=== PATIENT | male | born 1975 | race Caucasian/White ===

== ENCOUNTER 2018-12-29 14:43 | Inpatient (IN) | payer OTHER | END 2019-01-01 10:13 | disposition home or self-care (01) | LOC: YASAS 14:43 → Y6N 17:16 ==

== ENCOUNTER 2019-04-30 10:15 | Inpatient (IN) | payer SELFPAY ==
[2019-04-30 10:33] VITALS: BMI 32.5
--- NOTE | 2019-04-30 11:49 | HP ---
COWS - Scale Resting Pulse: 0= [place] 80 or Below Sweatin= No chills or Flushing Restless Observation: 1= Difficult to Sit Still Pupil Size: 0= Normal to Room Light Bone or Joint Aches: 2= Severe Diffuse Aches Runny Nose/ Eye Tearin= None GI Upset > 30mins: 1= Stomach Cramp Tremor Observation: 0= None Yawning Observation: 0= None Anxiety or Irritability: 2=Irritable/Anxious Goose Flesh Skin: 0=Smooth Skin COWS Score: 6 CIWA Score - Admission Criteria [facility]ASAS Guidelines: Admission for Medically Managed Detox: Requires at least one of the followin. CIWA greater than 12 2. Seizures within the past 24 hours 3. Delirium tremens within the past 24 hours 4. Hallucinations within the past 24 hours 5. Acute intervention needed for co occurring medical disorder 6. Acute intervention needed for co occurring psychiatric disorder 7. Severe withdrawal that cannot be handled at a lower level of care (continued vomiting, continued diarrhea, abnormal vital signs) requiring intravenous medication and/or fluids 8. Admission ROS [facility] - HPI Allergies/Adverse Reactions: Allergies Allergy/AdvReac Type Severity Reaction Status Date / Time No Known Allergies Allergy Verified 04/30/19 10:27 History of Present Illness: pt here requesting detox from heroin use , reports 7-10 bags/day via inhalation ,started use 11 mo ago , reports also illicit Methadone use as well , states he buys 120 mg methadone daily and uses 1/2 bottle/day , denies ivdu ,denies od . Latest use yesterday night , current symptoms as above, latest methadone use this morning 60 mg . 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 - Ebola screening Have you traveled outside of the country in the last 21 days: No Have you had contact with anyone from an Ebola affected area: No Do you have a fever: No - Review of Systems Constitutional: Loss of Appetite EENT: reports: No Symptoms Reported Respiratory: reports: No Symptoms reported Cardiac: reports: No Symptoms Reported GI: reports: See HPI : reports: No Symptoms Reported Musculoskeletal: reports: See HPI Integumentary: reports: No Symptoms Reported Neuro: reports: Headache Endocrine: reports: No Symptoms Reported Psychiatric: reports: Orientated x3, Anxious Patient History - Patient Medical History Hx Asthma: No Hx Chronic Obstructive Pulmonary Disease (COPD): No Hx Cardiac Disorders: No Hx Hypertension: No Hx Seizures: No Hx Diabetes: No Hx Gastrointestinal Disorders: No Hx Genitourinary Disorders: No Hx Sexually Transmitted Disorders: No Hx Renal Disease (ESRD): No Hx Depression: No Hx Suicide Attempt: No Hx Schizophrenia: No - Patient Surgical History Past Surgical History: No Hx Neurologic Surgery: No Hx Cataract Extraction: No Hx Cardiac Surgery: No Hx Lung Surgery: No Hx Breast Surgery: No Hx Breast Biopsy: No Hx Abdominal Surgery: No Hx Appendectomy: No Hx Cholecystectomy: No Hx Genitourinary Surgery: No Hx Section: No Hx Orthopedic Surgery: No Anesthesia Reaction: No - PPD History Date: 12/31/18 - Smoking Cessation Smoking history: Current some day smoker Have you smoked in the past 12 months: Yes Cigars Per Day: 1 (Every 2 weeks) Hx Chewing Tobacco Use: No Initiated information on smoking cessation: No - Substances abused Heroin Substance route: Inhalation Frequency: Daily Amount used: 7-10 bags Age of first use: 43 Date of last use: 04/29/19 Non-Rx Methadone Substance route: Oral Frequency: 1-2 times per week Amount used: varies Age of first use: 43 Date of last use: 04/30/19 Admission Physical Exam [facility] - Vital Signs Vital Signs: Vital Signs - 24 hr 04/30/19 10:27 Temperature 97.9 F Pulse Rate 52 L Respiratory 20 Rate Blood Pressure 182/97 H - Physical General Appearance: Yes: Mild Distress, Anxious, Other (guarded) HEENTM: Yes: EOMI, Hearing grossly Normal, Normocephalic, Normal Voice Respiratory: Yes: Chest Non-Tender, Lungs Clear, Normal Breath Sounds, No Respiratory Distress, No Accessory Muscle Use Neck: Yes: No masses,lesions,Nodules, Trachea in good position Cardiology: Yes: Regular Rhythm, Regular Rate, S1, S2 Abdominal: Yes: Non Tender, Soft Musculoskeletal: Yes: full range of Motion, Gait Steady Extremities: Yes: Normal Inspection, Normal Range of Motion, Non-Tender Neurological: Yes: Fully Oriented, Alert, Motor Strength 5/5, Normal Mood/Affect Integumentary: Yes: Warm - Diagnostic (1) Opioid dependence with intoxication Current Visit: Yes Status: Acute Qualifiers: Complication of substance-induced condition: uncomplicated Qualified Code(s ): F11.220 - Opioid dependence with intoxication, uncomplicated Breathalyzer - Breathalyzer Breathalyzer: 0 Urine Drug Screen - Test Device Lot number: [id number] Expiration date: 01/02/21 - Control Is test valid?: Yes - Results Drug screen NEGATIVE: No Urine drug screen results: MOP-Opiates, OXY-Oxycodone, MTD-Methadone Inpatient Rehab Admission - Rehab Decision to Admit Inpatient rehab admission?: No
[2019-04-30] MEDS ORDERED: MENTHOL/PHENOL 1 EACH UD MM PRN (12:02)
[2019-04-30] MEDS ORDERED: BISMUTH SUBSALICYLATE 524 MG/30 ML UD PO PRN (12:02)
[2019-04-30] MEDS ORDERED: MAGNESIUM HYDROX 2400MG/30ML ORAL SUSPENSION 30 ML CUP PO PRN (12:02)
[2019-04-30] MEDS ORDERED: ACETAMINOPHEN 325 MG TABLET (FP) PO PRN ×2 (12:02)
[2019-04-30] MEDS ORDERED: MAGNESIUM CITRATE 300 ML BOTTLE PO PRN (12:02)
[2019-04-30] MEDS ORDERED: MAG HYDROX/AL HYDROX/SIMETH 30 ML UNIT-DOSE CUP PO PRN (12:02)
[2019-04-30] MEDS ORDERED: IBUPROFEN 400 MG TABLET (FP) PO PRN (12:02)
[2019-04-30] MEDS ORDERED: cloNIDine HCL 0.1 MG TABLET PO PRN (12:03)
[2019-04-30] MEDS: hydrOXYzine PAMOATE 25 MG CAPSULE (FP) PO PRN ×2 (15:04→22:20)
[2019-04-30] MEDS: METHOCARBAMOL 500 MG TABLET PO PRN ×2 (15:04→22:20)
[2019-04-30] MEDS: clonazePAM 0.5 MG TABLET PO PRN (17:29)
[2019-04-30] MEDS: THIAMINE HCL 100 MG TABLET (FP) PO SCH (22:20)
[2019-04-30] MEDS: MELATONIN 5 MG TABLETS PO PRN (22:20)
[2019-04-30] MEDS ORDERED: METHADONE HCL 10 MG TABLET (FOR DETOX USE ONLY) PO ONE (23:00)
[2019-05-01] MEDS: clonazePAM 0.5 MG TABLET PO PRN ×3 (07:27→22:22)
[2019-05-01 09:40] LABS: HEMATOCRIT 45.1 % (35.4-49); HEMOGLOBIN 15.7 GM/dL (11.7-16.9); MCH 29.3 pg (25.7-33.7); MCHC 34.8 g/dl (32.0-35.9); MEAN CELL VOLUME 84.2 fl (80-96); MEAN PLT VOLUME 7.4 fl (7.5-11.1); PLATELET COUNT 144 K/MM3 (134-434); RBC 5.35 M/mm3 (4.00-5.60); RDW 13.5 % (11.9-15.9); WHITE BLOOD COUNT 5.1 K/mm3 (4.0-10.0)
[2019-05-01 09:55] LABS: ALBUMIN 3.9 g/dl (3.4-5.0); BILIRUBIN,TOTAL 0.7 mg/dL (0.2-1); BLOOD UREA NITROGEN 17.1 mg/dL (7-18); CREATININE 0.8 mg/dL (0.55-1.3); POTASSIUM 4.7 mmol/L (3.5-5.1); TOT PROT 6.7 g/dl (6.4-8.2)
[2019-05-01] MEDS ORDERED: METHADONE HCL 5 MG TABLET (FOR DETOX USE ONLY) PO ONE (10:00)
[2019-05-01] MEDS: PRENATAL VITAMINS W/ FOLIC ACID TABLET (FP) PO SCH (10:38)
[2019-05-01] MEDS: METHOCARBAMOL 500 MG TABLET PO PRN ×2 (10:42→19:27)
[2019-05-01] MEDS: hydrOXYzine PAMOATE 25 MG CAPSULE (FP) PO PRN ×2 (10:43→19:27)
--- NOTE | 2019-05-01 11:45 | PN ---
BHS COWS - Scale Resting Pulse: 0= [place] 80 or Below Sweatin= Chills/Flushing Restless Observation: 1= Difficult to Sit Still Pupil Size: 0= Normal to Room Light Bone or Joint Aches: 2= Severe Diffuse Aches Runny Nose/ Eye Tearin= Nasal Congestion GI Upset > 30mins: 1= Stomach Cramp Tremor Observation of Outstretched Hands: 1= Tremor [place], Not Seen Yawning Observation: 1= 1-2x During Session Anxiety or Irritability: 0= None Goose Flesh Skin: 0=Smooth Skin COWS Score: 8 BHS Progress Note (SOAP) Subjective: c/o back pain, chills, sweats, interrupted sleep. Objective: 05/01/19 11:39 Vital Signs Temperature 98.7 F 05/01/19 09:19 Pulse Rate 50 L 05/01/19 09:19 Respiratory Rate 18 05/01/19 09:19 Blood Pressure 142/74 05/01/19 09:19 O2 Sat by Pulse Oximetry (%) Laboratory Last Values WBC 5.1 K/mm3 (4.0-10.0) 05/01/19 07:30 RBC 5.35 M/mm3 (4.00-5.60) 05/01/19 07:30 Hgb 15.7 GM/dL (11.7-16.9) 05/01/19 07:30 Hct 45.1 % (35.4-49) 05/01/19 07:30 MCV 84.2 fl (80-96) 05/01/19 07:30 MCH 29.3 pg (25.7-33.7) 05/01/19 07:30 MCHC 34.8 g/dl (32.0-35.9) 05/01/19 07:30 RDW 13.5 % (11.9-15.9) 05/01/19 07:30 Plt Count 144 K/MM3 (134-434) 05/01/19 07:30 MPV 7.4 fl (7.5-11.1) L 05/01/19 07:30 Sodium 143 mmol/L (136-145) 05/01/19 07:30 Potassium 4.7 mmol/L (3.5-5.1) 05/01/19 07:30 Chloride 107 mmol/L (98-107) 05/01/19 07:30 Carbon Dioxide 30 mmol/L (21-32) 05/01/19 07:30 Anion Gap 6 MMOL/L (8-16) L 05/01/19 07:30 BUN 17.1 mg/dL (7-18) 05/01/19 07:30 Creatinine 0.8 mg/dL (0.55-1.3) 05/01/19 07:30 Est GFR (CKD-EPI)AfAm 125.92 05/01/19 07:30 Est GFR (CKD-EPI)NonAf 108.65 05/01/19 07:30 Random Glucose 91 mg/dL (74-106) 05/01/19 07:30 Calcium 9.0 mg/dL (8.5-10.1) 05/01/19 07:30 Total Bilirubin 0.7 mg/dL (0.2-1) 05/01/19 07:30 AST 10 U/L (15-37) L 05/01/19 07:30 ALT 27 U/L (13-61) 05/01/19 07:30 Alkaline Phosphatase 80 U/L (45-117) 05/01/19 07:30 Total Protein 6.7 g/dl (6.4-8.2) 05/01/19 07:30 Albumin 3.9 g/dl (3.4-5.0) 05/01/19 07:30 RPR Titer Nonreactive (NONREACTIVE) 05/01/19 07:30 Labs reviewed Assessment: 05/01/19 11:43 Patient AOx3 no acute distress no adventitious breath sounds EENT WNL full ROM no gait abnormality Plan: MAT options reviewed with patient, patient plans to attend rehab post detox and OTP increase PO fluids continue detox continue to monitor
[2019-05-01] MEDS: THIAMINE HCL 100 MG TABLET (FP) PO SCH (22:20)
[2019-05-01] MEDS: MELATONIN 5 MG TABLETS PO PRN (22:22)
[2019-05-02] MEDS: METHOCARBAMOL 500 MG TABLET PO PRN ×3 (06:35→19:50)
[2019-05-02] MEDS: clonazePAM 0.5 MG TABLET PO PRN ×3 (06:35→19:50)
[2019-05-02] MEDS: hydrOXYzine PAMOATE 25 MG CAPSULE (FP) PO PRN ×3 (06:36→19:50)
[2019-05-02] MEDS ORDERED: METHADONE HCL 10 MG TABLET (FOR DETOX USE ONLY) PO ONE (10:00)
[2019-05-02] MEDS: PRENATAL VITAMINS W/ FOLIC ACID TABLET (FP) PO SCH (10:08)
--- NOTE | 2019-05-02 10:35 | PN ---
S COWS - Scale Resting Pulse: 0= [place] 80 or Below Sweatin= Beads of Sweat on Face Restless Observation: 1= Difficult to Sit Still Pupil Size: 0= Normal to Room Light Bone or Joint Aches: 2= Severe Diffuse Aches Runny Nose/ Eye Tearin= None GI Upset > 30mins: 0= None Tremor Observation of Outstretched Hands: 2= Slight Tremor Visible Yawning Observation: 1= 1-2x During Session Anxiety or Irritability: 2=Irritable/Anxious Goose Flesh Skin: 0=Smooth Skin COWS Score: 11 S Progress Note (SOAP) Subjective: c/o sweats, anxiety, irritability, muscle aches. Objective: 05/02/19 10:34 Vital Signs 05/02/19 05/02/19 05/02/19 03:30 07:02 09:40 Temperature 97.3 F L 97.7 F Pulse Rate 45 L 55 L Respiratory 18 18 18 Rate Blood Pressure 144/85 137/91 Lab Results WBC 5.1 K/mm3 (4.0-10.0) 05/01/19 07:30 RBC 5.35 M/mm3 (4.00-5.60) 05/01/19 07:30 Hgb 15.7 GM/dL (11.7-16.9) 05/01/19 07:30 Hct 45.1 % (35.4-49) 05/01/19 07:30 MCV 84.2 fl (80-96) 05/01/19 07:30 MCHC 34.8 g/dl (32.0-35.9) 05/01/19 07:30 RDW 13.5 % (11.9-15.9) 05/01/19 07:30 Plt Count 144 K/MM3 (134-434) 05/01/19 07:30 Sodium 143 mmol/L (136-145) 05/01/19 07:30 Potassium 4.7 mmol/L (3.5-5.1) 05/01/19 07:30 Chloride 107 mmol/L (98-107) 05/01/19 07:30 Carbon Dioxide 30 mmol/L (21-32) 05/01/19 07:30 Anion Gap 6 MMOL/L (8-16) L 05/01/19 07:30 BUN 17.1 mg/dL (7-18) 05/01/19 07:30 Creatinine 0.8 mg/dL (0.55-1.3) 05/01/19 07:30 Random Glucose 91 mg/dL (74-106) 05/01/19 07:30 Calcium 9.0 mg/dL (8.5-10.1) 05/01/19 07:30 Labs noted. Assessment: 05/02/19 10:35 AOX3, in no acute respiratory distress. Full ROM, ambulating in the unit. Withdrawal symptoms. Plan: continue detox.
[2019-05-02] MEDS: THIAMINE HCL 100 MG TABLET (FP) PO SCH (21:35)
[2019-05-02] MEDS: MELATONIN 5 MG TABLETS PO PRN (21:35)
[2019-05-03] MEDS: clonazePAM 0.5 MG TABLET PO PRN ×2 (01:54→07:55)
[2019-05-03] MEDS: METHOCARBAMOL 500 MG TABLET PO PRN ×2 (01:54→07:55)
[2019-05-03] MEDS: hydrOXYzine PAMOATE 25 MG CAPSULE (FP) PO PRN ×2 (01:54→07:55)
[2019-05-03] MEDS ORDERED: METHADONE HCL 5 MG TABLET (FOR DETOX USE ONLY) PO ONE (06:00)
[2019-05-03 10:01] VITALS: BP 127/85; PULSE 60; TEMP 97.5
--- NOTE | 2019-05-03 12:55 | DS ---
[facility] Detox Discharge Summary Admission Date: 04/30/19 Discharge Date: 05/03/19 - History Present History: Opioid Dependence Additional Comments: Patient completed detox successfully and discharged safety. Patient wants to be discharged today. Patient instructed to follow up with PCP within 1 week for all medical problems. Patient denies any complaints. Pertinent Past History: Opioid dependence Obesity HTN - Physical Exam Results Vital Signs: Vital Signs Temperature 97.5 F L 05/03/19 09:59 Pulse Rate 60 05/03/19 09:59 Respiratory Rate 18 05/03/19 09:59 Blood Pressure 127/85 05/03/19 09:59 O2 Sat by Pulse Oximetry (%) Pertinent Admission Physical Exam Findings: Withdrawal symptoms Laboratory Tests 05/01/19 05/01/19 05/01/19 07:30 07:30 07:30 WBC 5.1 RBC 5.35 Hgb 15.7 Hct 45.1 MCV 84.2 MCH 29.3 MCHC 34.8 RDW 13.5 Plt Count 144 MPV 7.4 L Sodium 143 Potassium 4.7 Chloride 107 Carbon Dioxide 30 Anion Gap 6 L BUN 17.1 Creatinine 0.8 Est GFR (CKD-EPI)AfAm 125.92 Est GFR (CKD-EPI)NonAf 108.65 Random Glucose 91 Calcium 9.0 Total Bilirubin 0.7 AST 10 L ALT 27 Alkaline Phosphatase 80 Total Protein 6.7 Albumin 3.9 RPR Titer Nonreactive Labs reviewed - Treatment Hospital Course: Detox Protocol Followed, Detoxed Safely, Responded well, Discharged Condition Good - Medication Discharge Medications: Ambulatory Orders Amlodipine Besylate 10 mg PO DAILY 12/29/18 - Diagnosis (1) Essential (primary) hypertension Current Visit: Yes Status: Chronic (2) Opioid dependence with withdrawal Current Visit: Yes Status: Chronic (3) Obesity Current Visit: Yes Status: Chronic - AMA Did Patient Leave Against Medical Advice: No (Instructed to follow up with PCP in 1 week)
== END 2019-05-03 10:18 | disposition home or self-care (01) | DRG 773 ==
LOC: YASAS 10:15 → Y6N 13:03
PROVIDERS: ADMIT Surgery; ATTEND Surgery
PROC: HZ2ZZZZ Detoxification Services for Substance Abuse Treatment (ICD-10-PCS; principal; 2019-04-30)
DX: F11.23 Opioid dependence with withdrawal (principal); I10 Essential (primary) hypertension; E66.9 Obesity, unspecified; Z68.32 Body mass index [BMI] 32.0-32.9, adult
CPT/HCPCS: 36415; 80053; 85027; 86593; J0735

== ENCOUNTER 2020-08-12 18:19 | Inpatient (IN) | payer OTHER ==
[2020-08-12] MEDS ORDERED: MAGNESIUM HYDROX 2400MG/30ML ORAL SUSPENSION 30 ML CUP PO PRN (20:58)
[2020-08-12] MEDS ORDERED: MAGNESIUM CITRATE 300 ML BOTTLE PO PRN (20:58)
[2020-08-12] MEDS ORDERED: guaiFENesin 200 MG/10 ML 10 ML UNIT-DOSE CUPS PO PRN (20:58)
[2020-08-12] MEDS ORDERED: MAG HYDROX/AL HYDROX/SIMETH 30 ML UNIT-DOSE CUP PO PRN (20:58)
[2020-08-12] MEDS ORDERED: ACETAMINOPHEN 325 MG TABLET (FP) PO PRN (20:58)
[2020-08-12] MEDS ORDERED: IBUPROFEN 400 MG TABLET (FP) PO PRN (20:58)
[2020-08-12] MEDS ORDERED: NICOTINE POLACRILEX 2 MG GUM BC PRN (20:58)
[2020-08-12] MEDS ORDERED: P-EPHED 60MG/TRIPROLIDI 2.5MG TABLET PO PRN (20:58)
[2020-08-12] MEDS ORDERED: LOPERAMIDE HCL 2 MG CAPSULE PO PRN (20:58)
[2020-08-12] MEDS ORDERED: cloNIDine HCL 0.1 MG TABLET PO PRN (21:00)
[2020-08-12 22:18] VITALS: BMI 36.5
[2020-08-12] MEDS ORDERED: TUBERCULIN PPD 5 TU/0.1ML VIAL ID ONE (23:30)
[2020-08-12] MEDS: THIAMINE HCL 100 MG TABLET (FP) PO SCH (23:30)
[2020-08-12] MEDS: MELATONIN 5 MG TABLETS PO SCH (23:30)
[2020-08-12] MEDS: HYDROCORTISONE 1% TOPICAL OINT 30 GM TUBE TP SCH (23:32)
[2020-08-13] MEDS ORDERED: METHADONE HCL 10 MG TABLET PO SCH (07:45)
[2020-08-13] MEDS ORDERED: METHADONE HCL 10 MG TABLET ONE (08:24)
[2020-08-13] MEDS ORDERED: METHADONE HCL 40 MG DISPERSABLE TABLET ONE (08:24)
[2020-08-13] MEDS: METHADONE 120 MG, METHADONE 20 MG PO SCH (08:46)
[2020-08-13] MEDS: PRENATAL VITAMINS W/ FOLIC ACID TABLET (FP) PO SCH (10:28)
[2020-08-13] MEDS: amLODIPine BESYLATE 10 MG TABLET (FP) PO SCH (10:28)
[2020-08-13] MEDS: HYDROCORTISONE 1% TOPICAL OINT 30 GM TUBE TP SCH ×2 (10:29→21:16)
[2020-08-13] MEDS: NICOTINE 14 MG/24 HOURS TOPICAL PATCH TD SCH (10:29)
[2020-08-13 11:28] LABS: HEMATOCRIT 41.9 % (35.4-49); HEMOGLOBIN 14.2 GM/dL (11.7-16.9); MCH 28.7 pg (25.7-33.7); MEAN CELL VOLUME 84.4 fl (80-96); MEAN PLT VOLUME 8.3 fl (7.5-11.1); PLATELET COUNT 123 K/MM3 (134-434); POTASSIUM 3.8 mmol/L (3.5-5.1); RBC 4.96 M/mm3 (4.00-5.60); RDW 14.6 % (11.9-15.9); WHITE BLOOD COUNT 3.8 K/mm3 (4.0-10.0)
[2020-08-13 11:30] LABS: ALBUMIN 3.7 g/dl (3.4-5.0); BLOOD UREA NITROGEN 24.7 mg/dL (7-18); CALCIUM 8.7 mg/dL (8.5-10.1)
[2020-08-13 11:35] LABS: BILIRUBIN,TOTAL 0.6 mg/dL (0.2-1); TOT PROT 6.6 g/dl (6.4-8.2)
[2020-08-13 12:06] LABS: SICKLE CELL SCREEN NEGATIVE (NEGATIVE)
[2020-08-13] MEDS: hydrOXYzine PAMOATE 25 MG CAPSULE (FP) PO PRN (16:40)
[2020-08-13] MEDS: MELATONIN 5 MG TABLETS PO SCH (21:15)
[2020-08-13] MEDS: QUEtiapine FUMARATE 100 MG TABLET (FP) PO SCH (21:15)
[2020-08-13] MEDS: MIRTAZAPINE 15 MG TABLET (FP) PO SCH (21:15)
[2020-08-13] MEDS: THIAMINE HCL 100 MG TABLET (FP) PO SCH (21:15)
[2020-08-13] MEDS ORDERED: QUEtiapine FUMARATE 200 MG TABLET PO SCH (22:00)
[2020-08-14] MEDS ORDERED: METHADONE HCL 10 MG TABLET ONE (03:24)
[2020-08-14] MEDS ORDERED: METHADONE HCL 40 MG DISPERSABLE TABLET ONE (03:24)
[2020-08-14] MEDS: METHADONE 120 MG, METHADONE 20 MG PO SCH (06:30)
[2020-08-14] MEDS: hydrOXYzine PAMOATE 25 MG CAPSULE (FP) PO PRN ×3 (06:31→21:21)
[2020-08-14] MEDS ORDERED: PT OWN MED DRAWER 7, Y5N ONE (08:40)
[2020-08-14] MEDS: HYDROCORTISONE 1% TOPICAL OINT 30 GM TUBE TP SCH ×2 (09:35→21:22)
[2020-08-14] MEDS: NICOTINE 14 MG/24 HOURS TOPICAL PATCH TD SCH (09:35)
[2020-08-14] MEDS: PRENATAL VITAMINS W/ FOLIC ACID TABLET (FP) PO SCH (09:35)
[2020-08-14] MEDS: amLODIPine BESYLATE 10 MG TABLET (FP) PO SCH (09:35)
[2020-08-14 10:45] LABS: PH,URINE 5.5 (5.0-8.0); URINE APPEARANCE CLEAR; URINE BILIRUBIN NEGATIVE (NEGATIVE); URINE COLOR YELLOW; URINE GLUCOSE (UA) NEGATIVE (NEGATIVE); URINE KETONE NEGATIVE (NEGATIVE); URINE LEUK ESTERASE NEGATIVE (NEGATIVE); URINE NITRITE NEGATIVE (NEGATIVE); URINE PROTEIN NEGATIVE (NEGATIVE); URINE UROBILINOGEN 0.2 mg/dL (0.2-1.0)
[2020-08-14] MEDS: QUEtiapine FUMARATE 100 MG TABLET (FP) PO SCH (21:21)
[2020-08-14] MEDS: MIRTAZAPINE 15 MG TABLET (FP) PO SCH (21:21)
[2020-08-14] MEDS: THIAMINE HCL 100 MG TABLET (FP) PO SCH (21:21)
[2020-08-14] MEDS: MELATONIN 5 MG TABLETS PO SCH (21:21)
[2020-08-15] MEDS ORDERED: METHADONE HCL 40 MG DISPERSABLE TABLET ONE (04:31)
[2020-08-15] MEDS ORDERED: METHADONE HCL 10 MG TABLET ONE (04:31)
[2020-08-15] MEDS: METHADONE 120 MG, METHADONE 20 MG PO SCH (06:10)
[2020-08-15] MEDS: hydrOXYzine PAMOATE 25 MG CAPSULE (FP) PO PRN ×3 (06:10→21:08)
[2020-08-15] MEDS: HYDROCORTISONE 1% TOPICAL OINT 30 GM TUBE TP SCH ×2 (09:48→21:10)
[2020-08-15] MEDS: PRENATAL VITAMINS W/ FOLIC ACID TABLET (FP) PO SCH (09:48)
[2020-08-15] MEDS: amLODIPine BESYLATE 10 MG TABLET (FP) PO SCH (09:48)
[2020-08-15] MEDS: NICOTINE 14 MG/24 HOURS TOPICAL PATCH TD SCH (09:48)
[2020-08-15] MEDS: CYCLOBENZAPRINE HCL 10 MG TABLET (FP) PO PRN ×2 (09:49→21:08)
[2020-08-15] MEDS: QUEtiapine FUMARATE 100 MG TABLET (FP) PO SCH (21:07)
[2020-08-15] MEDS: MIRTAZAPINE 15 MG TABLET (FP) PO SCH (21:07)
[2020-08-15] MEDS: GABAPENTIN 300 MG CAPSULE PO SCH (21:08)
[2020-08-15] MEDS: MELATONIN 5 MG TABLETS PO SCH (21:09)
[2020-08-15] MEDS: THIAMINE HCL 100 MG TABLET (FP) PO SCH (21:09)
[2020-08-16] MEDS ORDERED: PT OWN MED DRAWER 7, Y5N ONE (03:49)
[2020-08-16] MEDS ORDERED: METHADONE HCL 10 MG TABLET ONE (04:20)
[2020-08-16] MEDS ORDERED: METHADONE HCL 40 MG DISPERSABLE TABLET ONE (04:20)
[2020-08-16] MEDS: GABAPENTIN 300 MG CAPSULE PO SCH ×3 (06:19→21:45)
[2020-08-16] MEDS: hydrOXYzine PAMOATE 25 MG CAPSULE (FP) PO PRN ×2 (06:19→13:04)
[2020-08-16] MEDS: METHADONE 120 MG, METHADONE 20 MG PO SCH (06:20)
[2020-08-16] MEDS: CYCLOBENZAPRINE HCL 10 MG TABLET (FP) PO PRN ×2 (06:20→21:46)
[2020-08-16] MEDS: NICOTINE 14 MG/24 HOURS TOPICAL PATCH TD SCH (09:43)
[2020-08-16] MEDS: amLODIPine BESYLATE 10 MG TABLET (FP) PO SCH (09:44)
[2020-08-16] MEDS: HYDROCORTISONE 1% TOPICAL OINT 30 GM TUBE TP SCH ×2 (09:44→21:47)
[2020-08-16] MEDS: PRENATAL VITAMINS W/ FOLIC ACID TABLET (FP) PO SCH (09:44)
[2020-08-16] MEDS: QUEtiapine FUMARATE 100 MG TABLET (FP) PO SCH (21:45)
[2020-08-16] MEDS: MIRTAZAPINE 15 MG TABLET (FP) PO SCH (21:45)
[2020-08-16] MEDS: THIAMINE HCL 100 MG TABLET (FP) PO SCH (21:45)
[2020-08-16] MEDS: MELATONIN 5 MG TABLETS PO SCH (21:45)
[2020-08-16] MEDS: hydrOXYzine PAMOATE 50 MG CAPSULE (FP) PO PRN (21:46)
[2020-08-17] MEDS ORDERED: METHADONE HCL 10 MG TABLET ONE (04:12)
[2020-08-17] MEDS ORDERED: METHADONE HCL 40 MG DISPERSABLE TABLET ONE (04:12)
[2020-08-17] MEDS: GABAPENTIN 300 MG CAPSULE PO SCH ×3 (06:00→21:05)
[2020-08-17] MEDS: CYCLOBENZAPRINE HCL 10 MG TABLET (FP) PO PRN ×3 (06:01→21:05)
[2020-08-17] MEDS: METHADONE 120 MG, METHADONE 20 MG PO SCH (06:01)
[2020-08-17] MEDS: hydrOXYzine PAMOATE 50 MG CAPSULE (FP) PO PRN ×4 (06:01→21:05)
[2020-08-17] MEDS ORDERED: DOCUSATE SODIUM 100 MG CAPSULE (FP) PO ONE (09:05)
[2020-08-17] MEDS: amLODIPine BESYLATE 10 MG TABLET (FP) PO SCH (09:47)
[2020-08-17] MEDS: PRENATAL VITAMINS W/ FOLIC ACID TABLET (FP) PO SCH (09:47)
[2020-08-17] MEDS: NICOTINE 14 MG/24 HOURS TOPICAL PATCH TD SCH (09:48)
[2020-08-17] MEDS: HYDROCORTISONE 1% TOPICAL OINT 30 GM TUBE TP SCH ×2 (09:50→21:06)
[2020-08-17] MEDS: DOCUSATE SODIUM 100 MG CAPSULE (FP) PO SCH ×2 (14:42→21:05)
[2020-08-17] MEDS: MELATONIN 5 MG TABLETS PO SCH (21:05)
[2020-08-17] MEDS: MIRTAZAPINE 15 MG TABLET (FP) PO SCH (21:05)
[2020-08-17] MEDS: QUEtiapine FUMARATE 100 MG TABLET (FP) PO SCH (21:05)
[2020-08-17] MEDS: THIAMINE HCL 100 MG TABLET (FP) PO SCH (21:05)
[2020-08-18] MEDS ORDERED: METHADONE HCL 40 MG DISPERSABLE TABLET ONE (03:21)
[2020-08-18] MEDS ORDERED: METHADONE HCL 10 MG TABLET ONE (03:22)
[2020-08-18] MEDS: METHADONE 120 MG, METHADONE 20 MG PO SCH (05:52)
[2020-08-18] MEDS: GABAPENTIN 300 MG CAPSULE PO SCH ×3 (05:53→21:37)
[2020-08-18] MEDS: hydrOXYzine PAMOATE 50 MG CAPSULE (FP) PO PRN ×4 (05:53→21:37)
[2020-08-18] MEDS: DOCUSATE SODIUM 100 MG CAPSULE (FP) PO SCH ×3 (05:53→21:37)
[2020-08-18] MEDS: CYCLOBENZAPRINE HCL 10 MG TABLET (FP) PO PRN ×3 (05:53→21:37)
[2020-08-18] MEDS: amLODIPine BESYLATE 10 MG TABLET (FP) PO SCH (10:02)
[2020-08-18] MEDS: PRENATAL VITAMINS W/ FOLIC ACID TABLET (FP) PO SCH (10:03)
[2020-08-18] MEDS: NICOTINE 14 MG/24 HOURS TOPICAL PATCH TD SCH (10:03)
[2020-08-18] MEDS: HYDROCORTISONE 1% TOPICAL OINT 30 GM TUBE TP SCH ×2 (10:47→21:38)
[2020-08-18] MEDS: MELATONIN 5 MG TABLETS PO SCH (21:37)
[2020-08-18] MEDS: MIRTAZAPINE 15 MG TABLET (FP) PO SCH (21:37)
[2020-08-18] MEDS: QUEtiapine FUMARATE 100 MG TABLET (FP) PO SCH (21:37)
[2020-08-18] MEDS: THIAMINE HCL 100 MG TABLET (FP) PO SCH (21:37)
[2020-08-19] MEDS ORDERED: METHADONE HCL 40 MG DISPERSABLE TABLET ONE (05:45)
[2020-08-19] MEDS ORDERED: METHADONE HCL 10 MG TABLET ONE (05:45)
[2020-08-19] MEDS: METHADONE 120 MG, METHADONE 20 MG PO SCH (06:05)
[2020-08-19] MEDS: GABAPENTIN 300 MG CAPSULE PO SCH ×3 (06:05→21:09)
[2020-08-19] MEDS: DOCUSATE SODIUM 100 MG CAPSULE (FP) PO SCH ×3 (06:05→21:09)
[2020-08-19] MEDS: hydrOXYzine PAMOATE 50 MG CAPSULE (FP) PO PRN ×4 (06:05→21:09)
[2020-08-19] MEDS: CYCLOBENZAPRINE HCL 10 MG TABLET (FP) PO PRN ×3 (06:05→21:09)
[2020-08-19] MEDS: amLODIPine BESYLATE 10 MG TABLET (FP) PO SCH (10:03)
[2020-08-19] MEDS: PRENATAL VITAMINS W/ FOLIC ACID TABLET (FP) PO SCH (10:03)
[2020-08-19] MEDS: NICOTINE 14 MG/24 HOURS TOPICAL PATCH TD SCH (10:03)
[2020-08-19] MEDS: HYDROCORTISONE 1% TOPICAL OINT 30 GM TUBE TP SCH (10:04)
[2020-08-19] MEDS: MIRTAZAPINE 15 MG TABLET (FP) PO SCH (21:09)
[2020-08-19] MEDS: MELATONIN 5 MG TABLETS PO SCH (21:09)
[2020-08-19] MEDS: THIAMINE HCL 100 MG TABLET (FP) PO SCH (21:09)
[2020-08-19] MEDS: QUEtiapine FUMARATE 100 MG TABLET (FP) PO SCH (21:09)
[2020-08-20] MEDS ORDERED: METHADONE HCL 10 MG TABLET ONE (03:27)
[2020-08-20] MEDS ORDERED: METHADONE HCL 40 MG DISPERSABLE TABLET ONE (03:27)
[2020-08-20] MEDS: METHADONE 120 MG, METHADONE 20 MG PO SCH (06:08)
[2020-08-20] MEDS: DOCUSATE SODIUM 100 MG CAPSULE (FP) PO SCH ×3 (06:08→21:17)
[2020-08-20] MEDS: GABAPENTIN 300 MG CAPSULE PO SCH ×3 (06:08→21:17)
[2020-08-20] MEDS: CYCLOBENZAPRINE HCL 10 MG TABLET (FP) PO PRN ×3 (06:08→21:17)
[2020-08-20] MEDS: hydrOXYzine PAMOATE 50 MG CAPSULE (FP) PO PRN ×4 (06:08→21:16)
[2020-08-20] MEDS: PRENATAL VITAMINS W/ FOLIC ACID TABLET (FP) PO SCH (10:17)
[2020-08-20] MEDS: amLODIPine BESYLATE 10 MG TABLET (FP) PO SCH (10:17)
[2020-08-20] MEDS: NICOTINE 14 MG/24 HOURS TOPICAL PATCH TD SCH (10:18)
[2020-08-20] MEDS: THIAMINE HCL 100 MG TABLET (FP) PO SCH (21:16)
[2020-08-20] MEDS: MIRTAZAPINE 15 MG TABLET (FP) PO SCH (21:17)
[2020-08-20] MEDS: QUEtiapine FUMARATE 100 MG TABLET (FP) PO SCH (21:19)
[2020-08-20] MEDS: MELATONIN 5 MG TABLETS PO SCH (21:44)
[2020-08-21] MEDS ORDERED: METHADONE HCL 40 MG DISPERSABLE TABLET ONE (03:49)
[2020-08-21] MEDS ORDERED: METHADONE HCL 10 MG TABLET ONE (03:50)
[2020-08-21] MEDS: GABAPENTIN 300 MG CAPSULE PO SCH ×3 (06:03→22:03)
[2020-08-21] MEDS: CYCLOBENZAPRINE HCL 10 MG TABLET (FP) PO PRN ×3 (06:03→22:06)
[2020-08-21] MEDS: DOCUSATE SODIUM 100 MG CAPSULE (FP) PO SCH ×3 (06:03→22:03)
[2020-08-21] MEDS: METHADONE 120 MG, METHADONE 20 MG PO SCH (06:03)
[2020-08-21] MEDS: hydrOXYzine PAMOATE 50 MG CAPSULE (FP) PO PRN ×4 (06:05→22:04)
[2020-08-21] MEDS: amLODIPine BESYLATE 10 MG TABLET (FP) PO SCH (09:46)
[2020-08-21] MEDS: PRENATAL VITAMINS W/ FOLIC ACID TABLET (FP) PO SCH (09:46)
[2020-08-21] MEDS: NICOTINE 14 MG/24 HOURS TOPICAL PATCH TD SCH (09:48)
[2020-08-21] MEDS: MIRTAZAPINE 15 MG TABLET (FP) PO SCH (22:03)
[2020-08-21] MEDS: MELATONIN 5 MG TABLETS PO SCH (22:04)
[2020-08-21] MEDS: THIAMINE HCL 100 MG TABLET (FP) PO SCH (22:04)
[2020-08-21] MEDS: QUEtiapine FUMARATE 100 MG TABLET (FP) PO SCH (22:04)
[2020-08-22] MEDS ORDERED: METHADONE HCL 40 MG DISPERSABLE TABLET ONE (03:15)
[2020-08-22] MEDS ORDERED: METHADONE HCL 10 MG TABLET ONE (03:15)
[2020-08-22] MEDS: METHADONE 120 MG, METHADONE 20 MG PO SCH (06:01)
[2020-08-22] MEDS: DOCUSATE SODIUM 100 MG CAPSULE (FP) PO SCH ×3 (06:02→21:00)
[2020-08-22] MEDS: CYCLOBENZAPRINE HCL 10 MG TABLET (FP) PO PRN ×3 (06:02→21:01)
[2020-08-22] MEDS: GABAPENTIN 300 MG CAPSULE PO SCH ×3 (06:02→21:00)
[2020-08-22] MEDS: hydrOXYzine PAMOATE 50 MG CAPSULE (FP) PO PRN ×4 (06:02→21:01)
[2020-08-22] MEDS ORDERED: HYDROCORTISONE 1% TOPICAL CREAM 30 GM TUBE TP PRN (09:51)
[2020-08-22] MEDS: NICOTINE 14 MG/24 HOURS TOPICAL PATCH TD SCH (09:56)
[2020-08-22] MEDS: amLODIPine BESYLATE 10 MG TABLET (FP) PO SCH (09:56)
[2020-08-22] MEDS: PRENATAL VITAMINS W/ FOLIC ACID TABLET (FP) PO SCH (09:56)
[2020-08-22] MEDS: MIRTAZAPINE 15 MG TABLET (FP) PO SCH (21:00)
[2020-08-22] MEDS: MELATONIN 5 MG TABLETS PO SCH (21:00)
[2020-08-22] MEDS: QUEtiapine FUMARATE 100 MG TABLET (FP) PO SCH (21:00)
[2020-08-22] MEDS: THIAMINE HCL 100 MG TABLET (FP) PO SCH (21:00)
[2020-08-23] MEDS ORDERED: METHADONE HCL 10 MG TABLET ONE (03:42)
[2020-08-23] MEDS ORDERED: METHADONE HCL 40 MG DISPERSABLE TABLET ONE (03:42)
[2020-08-23] MEDS: METHADONE 120 MG, METHADONE 20 MG PO SCH (06:20)
[2020-08-23] MEDS: GABAPENTIN 300 MG CAPSULE PO SCH ×3 (06:21→21:32)
[2020-08-23] MEDS: CYCLOBENZAPRINE HCL 10 MG TABLET (FP) PO PRN ×3 (06:21→21:32)
[2020-08-23] MEDS: DOCUSATE SODIUM 100 MG CAPSULE (FP) PO SCH ×3 (06:21→21:32)
[2020-08-23] MEDS: hydrOXYzine PAMOATE 50 MG CAPSULE (FP) PO PRN ×4 (06:21→21:32)
[2020-08-23] MEDS: amLODIPine BESYLATE 10 MG TABLET (FP) PO SCH (10:22)
[2020-08-23] MEDS: PRENATAL VITAMINS W/ FOLIC ACID TABLET (FP) PO SCH (10:22)
[2020-08-23] MEDS: NICOTINE 14 MG/24 HOURS TOPICAL PATCH TD SCH (10:22)
[2020-08-23] MEDS: THIAMINE HCL 100 MG TABLET (FP) PO SCH (21:32)
[2020-08-23] MEDS: MELATONIN 5 MG TABLETS PO SCH (21:32)
[2020-08-23] MEDS: MIRTAZAPINE 15 MG TABLET (FP) PO SCH (21:32)
[2020-08-23] MEDS: QUEtiapine FUMARATE 100 MG TABLET (FP) PO SCH (21:32)
[2020-08-24] MEDS ORDERED: METHADONE HCL 40 MG DISPERSABLE TABLET ONE (03:40)
[2020-08-24] MEDS ORDERED: METHADONE HCL 10 MG TABLET ONE (03:40)
[2020-08-24] MEDS: CYCLOBENZAPRINE HCL 10 MG TABLET (FP) PO PRN ×3 (05:53→21:11)
[2020-08-24] MEDS: GABAPENTIN 300 MG CAPSULE PO SCH ×3 (05:53→21:10)
[2020-08-24] MEDS: DOCUSATE SODIUM 100 MG CAPSULE (FP) PO SCH ×3 (05:53→21:11)
[2020-08-24] MEDS: METHADONE 120 MG, METHADONE 20 MG PO SCH (05:53)
[2020-08-24] MEDS: hydrOXYzine PAMOATE 50 MG CAPSULE (FP) PO PRN ×4 (05:53→21:11)
[2020-08-24] MEDS: PRENATAL VITAMINS W/ FOLIC ACID TABLET (FP) PO SCH (09:57)
[2020-08-24] MEDS: amLODIPine BESYLATE 10 MG TABLET (FP) PO SCH (09:57)
[2020-08-24] MEDS: NICOTINE 14 MG/24 HOURS TOPICAL PATCH TD SCH (09:58)
[2020-08-24] MEDS: MIRTAZAPINE 15 MG TABLET (FP) PO SCH (21:11)
[2020-08-24] MEDS: QUEtiapine FUMARATE 100 MG TABLET (FP) PO SCH (21:11)
[2020-08-24] MEDS: THIAMINE HCL 100 MG TABLET (FP) PO SCH (21:12)
[2020-08-24] MEDS: MELATONIN 5 MG TABLETS PO SCH (21:12)
[2020-08-25] MEDS ORDERED: METHADONE HCL 40 MG DISPERSABLE TABLET ONE (03:47)
[2020-08-25] MEDS ORDERED: METHADONE HCL 10 MG TABLET ONE (03:47)
[2020-08-25] MEDS: CYCLOBENZAPRINE HCL 10 MG TABLET (FP) PO PRN ×3 (05:58→21:52)
[2020-08-25] MEDS: METHADONE 120 MG, METHADONE 20 MG PO SCH (05:58)
[2020-08-25] MEDS: GABAPENTIN 300 MG CAPSULE PO SCH ×3 (05:58→21:53)
[2020-08-25] MEDS: DOCUSATE SODIUM 100 MG CAPSULE (FP) PO SCH ×3 (05:58→21:51)
[2020-08-25] MEDS: hydrOXYzine PAMOATE 50 MG CAPSULE (FP) PO PRN ×4 (05:58→21:52)
[2020-08-25] MEDS: amLODIPine BESYLATE 10 MG TABLET (FP) PO SCH (09:57)
[2020-08-25] MEDS: PRENATAL VITAMINS W/ FOLIC ACID TABLET (FP) PO SCH (09:57)
[2020-08-25] MEDS: NICOTINE 14 MG/24 HOURS TOPICAL PATCH TD SCH (09:58)
[2020-08-25] MEDS: MIRTAZAPINE 15 MG TABLET (FP) PO SCH (21:52)
[2020-08-25] MEDS: THIAMINE HCL 100 MG TABLET (FP) PO SCH (21:52)
[2020-08-25] MEDS: QUEtiapine FUMARATE 100 MG TABLET (FP) PO SCH (21:52)
[2020-08-25] MEDS: MELATONIN 5 MG TABLETS PO SCH (21:53)
[2020-08-26] MEDS ORDERED: METHADONE HCL 40 MG DISPERSABLE TABLET ONE (03:14)
[2020-08-26] MEDS ORDERED: METHADONE HCL 10 MG TABLET ONE (03:14)
[2020-08-26] MEDS: GABAPENTIN 300 MG CAPSULE PO SCH ×3 (05:51→21:02)
[2020-08-26] MEDS: METHADONE 120 MG, METHADONE 20 MG PO SCH (05:51)
[2020-08-26] MEDS: hydrOXYzine PAMOATE 50 MG CAPSULE (FP) PO PRN ×4 (05:51→21:03)
[2020-08-26] MEDS: DOCUSATE SODIUM 100 MG CAPSULE (FP) PO SCH ×3 (05:51→21:02)
[2020-08-26] MEDS: CYCLOBENZAPRINE HCL 10 MG TABLET (FP) PO PRN ×3 (05:51→21:03)
[2020-08-26] MEDS: amLODIPine BESYLATE 10 MG TABLET (FP) PO SCH (09:58)
[2020-08-26] MEDS: NICOTINE 14 MG/24 HOURS TOPICAL PATCH TD SCH (09:58)
[2020-08-26] MEDS: PRENATAL VITAMINS W/ FOLIC ACID TABLET (FP) PO SCH (09:58)
[2020-08-26] MEDS: QUEtiapine FUMARATE 100 MG TABLET (FP) PO SCH (21:02)
[2020-08-26] MEDS: THIAMINE HCL 100 MG TABLET (FP) PO SCH (21:02)
[2020-08-26] MEDS: MELATONIN 5 MG TABLETS PO SCH (21:02)
[2020-08-26] MEDS: MIRTAZAPINE 15 MG TABLET (FP) PO SCH (21:03)
[2020-08-27] MEDS ORDERED: METHADONE HCL 40 MG DISPERSABLE TABLET ONE (05:46)
[2020-08-27] MEDS ORDERED: METHADONE HCL 10 MG TABLET ONE (05:47)
[2020-08-27] MEDS ORDERED: METHADONE HCL 40 MG DISPERSABLE TABLET PO SCH (06:00)
[2020-08-27] MEDS: CYCLOBENZAPRINE HCL 10 MG TABLET (FP) PO PRN ×3 (06:15→21:38)
[2020-08-27] MEDS: METHADONE 120 MG, METHADONE 20 MG PO SCH (06:15)
[2020-08-27] MEDS: DOCUSATE SODIUM 100 MG CAPSULE (FP) PO SCH ×3 (06:15→21:38)
[2020-08-27] MEDS: hydrOXYzine PAMOATE 50 MG CAPSULE (FP) PO PRN ×4 (06:15→21:37)
[2020-08-27] MEDS: GABAPENTIN 300 MG CAPSULE PO SCH ×3 (06:15→21:38)
[2020-08-27] MEDS: NICOTINE 14 MG/24 HOURS TOPICAL PATCH TD SCH (10:16)
[2020-08-27] MEDS: amLODIPine BESYLATE 10 MG TABLET (FP) PO SCH (10:16)
[2020-08-27] MEDS: PRENATAL VITAMINS W/ FOLIC ACID TABLET (FP) PO SCH (10:16)
[2020-08-27] MEDS: THIAMINE HCL 100 MG TABLET (FP) PO SCH (21:37)
[2020-08-27] MEDS: QUEtiapine FUMARATE 100 MG TABLET (FP) PO SCH (21:37)
[2020-08-27] MEDS: MELATONIN 5 MG TABLETS PO SCH (21:37)
[2020-08-27] MEDS: MIRTAZAPINE 15 MG TABLET (FP) PO SCH (21:38)
[2020-08-28] MEDS ORDERED: METHADONE HCL 10 MG TABLET ONE (03:18)
[2020-08-28] MEDS ORDERED: METHADONE HCL 40 MG DISPERSABLE TABLET ONE (03:18)
[2020-08-28] MEDS: hydrOXYzine PAMOATE 50 MG CAPSULE (FP) PO PRN ×4 (05:56→20:59)
[2020-08-28] MEDS: DOCUSATE SODIUM 100 MG CAPSULE (FP) PO SCH ×3 (05:56→21:00)
[2020-08-28] MEDS: CYCLOBENZAPRINE HCL 10 MG TABLET (FP) PO PRN ×3 (05:56→21:00)
[2020-08-28] MEDS: METHADONE 120 MG, METHADONE 20 MG PO SCH (05:56)
[2020-08-28] MEDS: GABAPENTIN 300 MG CAPSULE PO SCH ×3 (05:56→21:00)
[2020-08-28] MEDS: PRENATAL VITAMINS W/ FOLIC ACID TABLET (FP) PO SCH (10:14)
[2020-08-28] MEDS: amLODIPine BESYLATE 10 MG TABLET (FP) PO SCH (10:14)
[2020-08-28] MEDS: NICOTINE 14 MG/24 HOURS TOPICAL PATCH TD SCH (10:15)
[2020-08-28] MEDS: MELATONIN 5 MG TABLETS PO SCH (20:59)
[2020-08-28] MEDS: THIAMINE HCL 100 MG TABLET (FP) PO SCH (20:59)
[2020-08-28] MEDS: QUEtiapine FUMARATE 100 MG TABLET (FP) PO SCH (21:00)
[2020-08-28] MEDS: MIRTAZAPINE 15 MG TABLET (FP) PO SCH (21:00)
[2020-08-29] MEDS ORDERED: METHADONE HCL 40 MG DISPERSABLE TABLET ONE (03:47)
[2020-08-29] MEDS ORDERED: METHADONE HCL 10 MG TABLET ONE (03:47)
[2020-08-29] MEDS: GABAPENTIN 300 MG CAPSULE PO SCH ×3 (06:02→22:08)
[2020-08-29] MEDS: METHADONE 120 MG, METHADONE 20 MG PO SCH (06:02)
[2020-08-29] MEDS: DOCUSATE SODIUM 100 MG CAPSULE (FP) PO SCH ×3 (06:03→22:08)
[2020-08-29] MEDS: CYCLOBENZAPRINE HCL 10 MG TABLET (FP) PO PRN ×3 (06:03→22:07)
[2020-08-29] MEDS: hydrOXYzine PAMOATE 50 MG CAPSULE (FP) PO PRN ×4 (06:03→22:06)
[2020-08-29] MEDS: amLODIPine BESYLATE 10 MG TABLET (FP) PO SCH (10:04)
[2020-08-29] MEDS: NICOTINE 14 MG/24 HOURS TOPICAL PATCH TD SCH (10:04)
[2020-08-29] MEDS: PRENATAL VITAMINS W/ FOLIC ACID TABLET (FP) PO SCH (10:04)
[2020-08-29] MEDS: QUEtiapine FUMARATE 100 MG TABLET (FP) PO SCH (22:07)
[2020-08-29] MEDS: MIRTAZAPINE 15 MG TABLET (FP) PO SCH (22:08)
[2020-08-29] MEDS: MELATONIN 5 MG TABLETS PO SCH (22:08)
[2020-08-29] MEDS: THIAMINE HCL 100 MG TABLET (FP) PO SCH (22:08)
[2020-08-30] MEDS ORDERED: METHADONE HCL 40 MG DISPERSABLE TABLET ONE (03:15)
[2020-08-30] MEDS ORDERED: METHADONE HCL 10 MG TABLET ONE (03:15)
[2020-08-30] MEDS: METHADONE 120 MG, METHADONE 20 MG PO SCH (06:09)
[2020-08-30] MEDS: DOCUSATE SODIUM 100 MG CAPSULE (FP) PO SCH ×3 (06:09→21:00)
[2020-08-30] MEDS: hydrOXYzine PAMOATE 50 MG CAPSULE (FP) PO PRN ×4 (06:09→21:01)
[2020-08-30] MEDS: GABAPENTIN 300 MG CAPSULE PO SCH (06:10)
[2020-08-30] MEDS: CYCLOBENZAPRINE HCL 10 MG TABLET (FP) PO PRN ×3 (06:10→21:01)
[2020-08-30] MEDS: amLODIPine BESYLATE 10 MG TABLET (FP) PO SCH (10:07)
[2020-08-30] MEDS: PRENATAL VITAMINS W/ FOLIC ACID TABLET (FP) PO SCH (10:08)
[2020-08-30] MEDS: NICOTINE 14 MG/24 HOURS TOPICAL PATCH TD SCH (10:08)
[2020-08-30] MEDS: GABAPENTIN 400 MG CAPSULE PO SCH ×2 (14:48→21:00)
[2020-08-30] MEDS: SUVOREXANT 10 MG TABLET PO PRN (21:00)
[2020-08-30] MEDS: MIRTAZAPINE 15 MG TABLET (FP) PO SCH (21:01)
[2020-08-30] MEDS: QUEtiapine FUMARATE 100 MG TABLET (FP) PO SCH (21:01)
[2020-08-30] MEDS: THIAMINE HCL 100 MG TABLET (FP) PO SCH (21:01)
[2020-08-31] MEDS ORDERED: METHADONE HCL 10 MG TABLET ONE (03:12)
[2020-08-31] MEDS ORDERED: METHADONE HCL 40 MG DISPERSABLE TABLET ONE (03:12)
[2020-08-31] MEDS: METHADONE 120 MG, METHADONE 20 MG PO SCH (06:03)
[2020-08-31] MEDS: GABAPENTIN 400 MG CAPSULE PO SCH ×3 (06:04→21:49)
[2020-08-31] MEDS: CYCLOBENZAPRINE HCL 10 MG TABLET (FP) PO PRN ×3 (06:04→21:49)
[2020-08-31] MEDS: DOCUSATE SODIUM 100 MG CAPSULE (FP) PO SCH ×3 (06:04→21:50)
[2020-08-31] MEDS: hydrOXYzine PAMOATE 50 MG CAPSULE (FP) PO PRN ×4 (06:04→21:50)
[2020-08-31] MEDS: PRENATAL VITAMINS W/ FOLIC ACID TABLET (FP) PO SCH (10:10)
[2020-08-31] MEDS: amLODIPine BESYLATE 10 MG TABLET (FP) PO SCH (10:10)
[2020-08-31] MEDS: NICOTINE 14 MG/24 HOURS TOPICAL PATCH TD SCH (10:11)
[2020-08-31] MEDS: THIAMINE HCL 100 MG TABLET (FP) PO SCH (21:48)
[2020-08-31] MEDS: QUEtiapine FUMARATE 100 MG TABLET (FP) PO SCH (21:49)
[2020-08-31] MEDS: MIRTAZAPINE 15 MG TABLET (FP) PO SCH (21:50)
[2020-08-31] MEDS: SUVOREXANT 10 MG TABLET PO PRN (21:51)
[2020-09-01] MEDS ORDERED: METHADONE HCL 10 MG TABLET ONE (03:05)
[2020-09-01] MEDS ORDERED: METHADONE HCL 40 MG DISPERSABLE TABLET ONE (03:05)
[2020-09-01] MEDS: METHADONE 120 MG, METHADONE 20 MG PO SCH (06:08)
[2020-09-01] MEDS: hydrOXYzine PAMOATE 50 MG CAPSULE (FP) PO PRN ×4 (06:09→21:05)
[2020-09-01] MEDS: DOCUSATE SODIUM 100 MG CAPSULE (FP) PO SCH ×3 (06:09→21:05)
[2020-09-01] MEDS: GABAPENTIN 400 MG CAPSULE PO SCH ×3 (06:09→21:05)
[2020-09-01] MEDS: CYCLOBENZAPRINE HCL 10 MG TABLET (FP) PO PRN ×3 (06:09→21:05)
[2020-09-01] MEDS: NICOTINE 14 MG/24 HOURS TOPICAL PATCH TD SCH (10:19)
[2020-09-01] MEDS: PRENATAL VITAMINS W/ FOLIC ACID TABLET (FP) PO SCH (10:19)
[2020-09-01] MEDS: amLODIPine BESYLATE 10 MG TABLET (FP) PO SCH (10:19)
[2020-09-01] MEDS: THIAMINE HCL 100 MG TABLET (FP) PO SCH (21:04)
[2020-09-01] MEDS: MIRTAZAPINE 15 MG TABLET (FP) PO SCH (21:05)
[2020-09-01] MEDS: SUVOREXANT 10 MG TABLET PO PRN (21:05)
[2020-09-01] MEDS: QUEtiapine FUMARATE 100 MG TABLET (FP) PO SCH (21:05)
[2020-09-02] MEDS ORDERED: METHADONE HCL 40 MG DISPERSABLE TABLET ONE (03:15)
[2020-09-02] MEDS ORDERED: METHADONE HCL 10 MG TABLET ONE (03:15)
[2020-09-02] MEDS: METHADONE 120 MG, METHADONE 20 MG PO SCH (06:27)
[2020-09-02] MEDS: GABAPENTIN 400 MG CAPSULE PO SCH ×3 (06:28→21:56)
[2020-09-02] MEDS: DOCUSATE SODIUM 100 MG CAPSULE (FP) PO SCH ×3 (06:29→21:55)
[2020-09-02] MEDS: CYCLOBENZAPRINE HCL 10 MG TABLET (FP) PO PRN ×3 (06:29→21:56)
[2020-09-02] MEDS: hydrOXYzine PAMOATE 50 MG CAPSULE (FP) PO PRN ×4 (06:29→21:55)
[2020-09-02] MEDS: amLODIPine BESYLATE 10 MG TABLET (FP) PO SCH (10:30)
[2020-09-02] MEDS: NICOTINE 14 MG/24 HOURS TOPICAL PATCH TD SCH (10:30)
[2020-09-02] MEDS: PRENATAL VITAMINS W/ FOLIC ACID TABLET (FP) PO SCH (10:30)
[2020-09-02] MEDS: SUVOREXANT 10 MG TABLET PO PRN (21:54)
[2020-09-02] MEDS: MIRTAZAPINE 15 MG TABLET (FP) PO SCH (21:55)
[2020-09-02] MEDS: QUEtiapine FUMARATE 100 MG TABLET (FP) PO SCH (21:55)
[2020-09-02] MEDS: THIAMINE HCL 100 MG TABLET (FP) PO SCH (22:03)
[2020-09-03] MEDS: GABAPENTIN 400 MG CAPSULE PO SCH ×3 (05:50→21:08)
[2020-09-03] MEDS: hydrOXYzine PAMOATE 50 MG CAPSULE (FP) PO PRN ×4 (05:50→21:08)
[2020-09-03] MEDS: CYCLOBENZAPRINE HCL 10 MG TABLET (FP) PO PRN ×3 (05:50→21:08)
[2020-09-03] MEDS: DOCUSATE SODIUM 100 MG CAPSULE (FP) PO SCH ×3 (05:50→21:07)
[2020-09-03] MEDS ORDERED: METHADONE HCL 40 MG DISPERSABLE TABLET ONE (06:31)
[2020-09-03] MEDS ORDERED: METHADONE HCL 10 MG TABLET ONE (06:31)
[2020-09-03] MEDS: METHADONE 120 MG, METHADONE 20 MG PO SCH (06:32)
[2020-09-03] MEDS: amLODIPine BESYLATE 10 MG TABLET (FP) PO SCH (10:10)
[2020-09-03] MEDS: NICOTINE 14 MG/24 HOURS TOPICAL PATCH TD SCH (10:10)
[2020-09-03] MEDS: PRENATAL VITAMINS W/ FOLIC ACID TABLET (FP) PO SCH (10:10)
[2020-09-03] MEDS: QUEtiapine FUMARATE 100 MG TABLET (FP) PO SCH (21:07)
[2020-09-03] MEDS: THIAMINE HCL 100 MG TABLET (FP) PO SCH (21:08)
[2020-09-03] MEDS: MIRTAZAPINE 15 MG TABLET (FP) PO SCH (21:09)
[2020-09-03] MEDS: SUVOREXANT 10 MG TABLET PO PRN (21:10)
[2020-09-04] MEDS ORDERED: METHADONE HCL 40 MG DISPERSABLE TABLET ONE (03:05)
[2020-09-04] MEDS ORDERED: METHADONE HCL 10 MG TABLET ONE (03:05)
[2020-09-04] MEDS: METHADONE 120 MG, METHADONE 20 MG PO SCH (05:58)
[2020-09-04] MEDS: GABAPENTIN 400 MG CAPSULE PO SCH ×3 (05:58→21:55)
[2020-09-04] MEDS: DOCUSATE SODIUM 100 MG CAPSULE (FP) PO SCH ×3 (05:58→21:55)
[2020-09-04] MEDS: hydrOXYzine PAMOATE 50 MG CAPSULE (FP) PO PRN ×4 (06:00→21:58)
[2020-09-04] MEDS: CYCLOBENZAPRINE HCL 10 MG TABLET (FP) PO PRN ×4 (06:00→21:56)
[2020-09-04] MEDS: amLODIPine BESYLATE 10 MG TABLET (FP) PO SCH (10:04)
[2020-09-04] MEDS: PRENATAL VITAMINS W/ FOLIC ACID TABLET (FP) PO SCH (10:05)
[2020-09-04] MEDS: NICOTINE 14 MG/24 HOURS TOPICAL PATCH TD SCH (10:05)
[2020-09-04] MEDS: QUEtiapine FUMARATE 100 MG TABLET (FP) PO SCH (21:55)
[2020-09-04] MEDS: MIRTAZAPINE 15 MG TABLET (FP) PO SCH (21:56)
[2020-09-04] MEDS: THIAMINE HCL 100 MG TABLET (FP) PO SCH (21:57)
[2020-09-04] MEDS: SUVOREXANT 10 MG TABLET PO PRN (21:57)
[2020-09-05] MEDS ORDERED: METHADONE HCL 40 MG DISPERSABLE TABLET ONE (03:22)
[2020-09-05] MEDS ORDERED: METHADONE HCL 10 MG TABLET ONE (03:22)
[2020-09-05] MEDS: hydrOXYzine PAMOATE 50 MG CAPSULE (FP) PO PRN ×4 (06:19→21:01)
[2020-09-05] MEDS: GABAPENTIN 400 MG CAPSULE PO SCH ×3 (06:19→21:01)
[2020-09-05] MEDS: METHADONE 120 MG, METHADONE 20 MG PO SCH (06:19)
[2020-09-05] MEDS: DOCUSATE SODIUM 100 MG CAPSULE (FP) PO SCH ×3 (06:19→21:01)
[2020-09-05] MEDS: CYCLOBENZAPRINE HCL 10 MG TABLET (FP) PO PRN ×3 (06:19→21:01)
[2020-09-05] MEDS: NICOTINE 14 MG/24 HOURS TOPICAL PATCH TD SCH (10:20)
[2020-09-05] MEDS: PRENATAL VITAMINS W/ FOLIC ACID TABLET (FP) PO SCH (10:20)
[2020-09-05] MEDS: amLODIPine BESYLATE 10 MG TABLET (FP) PO SCH (10:20)
[2020-09-05] MEDS: MIRTAZAPINE 15 MG TABLET (FP) PO SCH (21:01)
[2020-09-05] MEDS: THIAMINE HCL 100 MG TABLET (FP) PO SCH (21:01)
[2020-09-05] MEDS: QUEtiapine FUMARATE 100 MG TABLET (FP) PO SCH (21:01)
[2020-09-05] MEDS: SUVOREXANT 10 MG TABLET PO PRN (21:02)
[2020-09-06] MEDS: GABAPENTIN 400 MG CAPSULE PO SCH ×3 (05:53→21:36)
[2020-09-06] MEDS: DOCUSATE SODIUM 100 MG CAPSULE (FP) PO SCH ×3 (05:53→21:36)
[2020-09-06] MEDS ORDERED: METHADONE HCL 10 MG TABLET ONE (05:54)
[2020-09-06] MEDS: METHADONE 120 MG, METHADONE 20 MG PO SCH (05:54)
[2020-09-06] MEDS ORDERED: METHADONE HCL 40 MG DISPERSABLE TABLET ONE (05:54)
[2020-09-06] MEDS: CYCLOBENZAPRINE HCL 10 MG TABLET (FP) PO PRN ×3 (05:56→21:36)
[2020-09-06] MEDS: hydrOXYzine PAMOATE 50 MG CAPSULE (FP) PO PRN ×4 (05:56→21:36)
[2020-09-06] MEDS: NICOTINE 14 MG/24 HOURS TOPICAL PATCH TD SCH (09:53)
[2020-09-06] MEDS: PRENATAL VITAMINS W/ FOLIC ACID TABLET (FP) PO SCH (09:53)
[2020-09-06] MEDS: amLODIPine BESYLATE 10 MG TABLET (FP) PO SCH (09:53)
[2020-09-06] MEDS: QUEtiapine FUMARATE 100 MG TABLET (FP) PO SCH (21:36)
[2020-09-06] MEDS: THIAMINE HCL 100 MG TABLET (FP) PO SCH (21:36)
[2020-09-06] MEDS: MIRTAZAPINE 15 MG TABLET (FP) PO SCH (21:36)
[2020-09-06] MEDS: SUVOREXANT 10 MG TABLET PO PRN (21:37)
[2020-09-07] MEDS ORDERED: METHADONE HCL 40 MG DISPERSABLE TABLET ONE (03:11)
[2020-09-07] MEDS ORDERED: METHADONE HCL 10 MG TABLET ONE (03:11)
[2020-09-07] MEDS: METHADONE 120 MG, METHADONE 20 MG PO SCH (06:06)
[2020-09-07] MEDS: DOCUSATE SODIUM 100 MG CAPSULE (FP) PO SCH ×3 (06:06→21:05)
[2020-09-07] MEDS: hydrOXYzine PAMOATE 50 MG CAPSULE (FP) PO PRN ×4 (06:06→21:05)
[2020-09-07] MEDS: CYCLOBENZAPRINE HCL 10 MG TABLET (FP) PO PRN ×3 (06:06→21:05)
[2020-09-07] MEDS: GABAPENTIN 400 MG CAPSULE PO SCH ×3 (06:06→21:05)
[2020-09-07] MEDS: PRENATAL VITAMINS W/ FOLIC ACID TABLET (FP) PO SCH (09:57)
[2020-09-07] MEDS: amLODIPine BESYLATE 10 MG TABLET (FP) PO SCH (09:57)
[2020-09-07] MEDS: NICOTINE 14 MG/24 HOURS TOPICAL PATCH TD SCH (09:58)
[2020-09-07] MEDS: THIAMINE HCL 100 MG TABLET (FP) PO SCH (21:05)
[2020-09-07] MEDS: QUEtiapine FUMARATE 100 MG TABLET (FP) PO SCH (21:05)
[2020-09-07] MEDS: MIRTAZAPINE 15 MG TABLET (FP) PO SCH (21:05)
[2020-09-07] MEDS: SUVOREXANT 10 MG TABLET PO PRN (21:06)
[2020-09-08] MEDS ORDERED: METHADONE HCL 10 MG TABLET ONE (03:40)
[2020-09-08] MEDS ORDERED: METHADONE HCL 40 MG DISPERSABLE TABLET ONE (03:40)
[2020-09-08] MEDS: DOCUSATE SODIUM 100 MG CAPSULE (FP) PO SCH ×3 (05:58→21:57)
[2020-09-08] MEDS: GABAPENTIN 400 MG CAPSULE PO SCH ×3 (05:58→21:55)
[2020-09-08] MEDS: CYCLOBENZAPRINE HCL 10 MG TABLET (FP) PO PRN ×3 (05:58→21:56)
[2020-09-08] MEDS: hydrOXYzine PAMOATE 50 MG CAPSULE (FP) PO PRN ×4 (05:58→21:56)
[2020-09-08] MEDS: METHADONE 120 MG, METHADONE 20 MG PO SCH (05:58)
[2020-09-08] MEDS: PRENATAL VITAMINS W/ FOLIC ACID TABLET (FP) PO SCH (10:02)
[2020-09-08] MEDS: amLODIPine BESYLATE 10 MG TABLET (FP) PO SCH (10:03)
[2020-09-08] MEDS: NICOTINE 14 MG/24 HOURS TOPICAL PATCH TD SCH (11:47)
[2020-09-08] MEDS: QUEtiapine FUMARATE 100 MG TABLET (FP) PO SCH (21:56)
[2020-09-08] MEDS: MIRTAZAPINE 15 MG TABLET (FP) PO SCH (21:56)
[2020-09-08] MEDS: THIAMINE HCL 100 MG TABLET (FP) PO SCH (21:57)
[2020-09-08] MEDS ORDERED: SUVOREXANT 10 MG TABLET PO PRN (22:00)
[2020-09-09] MEDS: DOCUSATE SODIUM 100 MG CAPSULE (FP) PO SCH (06:08)
[2020-09-09] MEDS: CYCLOBENZAPRINE HCL 10 MG TABLET (FP) PO PRN (06:08)
[2020-09-09] MEDS: GABAPENTIN 400 MG CAPSULE PO SCH (06:08)
[2020-09-09] MEDS: hydrOXYzine PAMOATE 50 MG CAPSULE (FP) PO PRN (06:08)
[2020-09-09 06:58] VITALS: BP 108/82; PULSE 74; TEMP 97.9
== END 2020-09-09 08:58 | disposition home or self-care (01) | DRG 772 ==
LOC: YASAS 18:19 → Y3W 22:32
PROVIDERS: ADMIT Allergy & Immunology; ATTEND Allergy & Immunology
PROC: HZ42ZZZ Group Counseling for Substance Abuse Treatment, Cognitive-Behavioral (ICD-10-PCS; principal; 2020-08-12)
DX: F11.20 Opioid dependence, uncomplicated (principal); F14.20 Cocaine dependence, uncomplicated; F13.20 Sedative, hypnotic or anxiolytic dependence, uncomplicated; F10.10 Alcohol abuse, uncomplicated; F17.210 Nicotine dependence, cigarettes, uncomplicated; F19.280 Other psychoactive substance dependence with psychoactive substance-induced anxiety disorder; F19.282 Other psychoactive substance dependence with psychoactive substance-induced sleep disorder; G62.9 Polyneuropathy, unspecified; G47.00 Insomnia, unspecified; I10 Essential (primary) hypertension; L30.9 Dermatitis, unspecified; E66.9 Obesity, unspecified; Z68.36 Body mass index [BMI] 36.0-36.9, adult; Z86.59 Personal history of other mental and behavioral disorders; Z91.14 Patient's other noncompliance with medication regimen
CPT/HCPCS: 36415; 80053; 81003; 85027; 85660; 86780; 93005; 93010; C9803; U0003